=== PATIENT | female | born 2000 | race Caucasian/White ===

== ENCOUNTER 2025-05-20 21:45 | Inpatient (IN) ==
[2025-05-20] MEDS ORDERED: SODIUM CHLORIDE FLUSH 0.9% 10 ML SYRINGE IVP PRN (23:46)
[2025-05-20] MEDS ORDERED: OXYTOCIN/SODIUM CHLORIDE 500 ML IV PRN (23:46)
[2025-05-20] MEDS ORDERED: TRANEXAMIC ACID IN NACL 1,000 MG/100 ML BAG IV PRN (23:46)
[2025-05-20] MEDS ORDERED: TERBUTALINE 1 MG/ML VIAL SUBQ PRN (23:46)
[2025-05-20] MEDS ORDERED: LACTATED RINGERS 1,000 ML IV PRN (23:46)
[2025-05-20] MEDS ORDERED: CARBOPROST TROMETHAMINE 250 MCG/ML VIAL IM PRN (23:46)
[2025-05-20] MEDS ORDERED: hydrALAZINE INJ 20 MG/ML VIAL IVP PRN (23:46)
[2025-05-20] MEDS ORDERED: METHYLERGONOVINE 0.2 MG/ML VIAL IM PRN (23:46)
[2025-05-20] MEDS ORDERED: OXYTOCIN 10 UNIT/ML VIAL IM PRN (23:46)
[2025-05-20] MEDS ORDERED: fentaNYL 100 MCG/2 ML VIAL IVP PRN (23:46)
[2025-05-20] MEDS ORDERED: LABETALOL 20 MG/4 ML SYRINGE IVP PRN ×3 (23:46)
[2025-05-21 01:09] LABS: HCT - HEMATOCRIT 30.5 % (37.0-47.0); HGB - HEMOGLOBIN 9.8 g/dL (12.0-16.0); MEAN PLATELET VOLUME 10.0 fL (7.9-10.8); NRBC ABSOLUTE COUNT (AUTO) 0.00 x10^3/uL; NUCLEATED RED BLOOD CELLS AUTO 0.0 /100WBC; PLT - PLATELET COUNT 288 10^3/uL (130-450); RED CELL DISTRIBUTION WIDTH 12.6 % (12.0-15.0)
[2025-05-21] MEDS: LACTATED RINGERS 1,000 ML IV SCH (01:30)
[2025-05-21] MEDS: AMPICILLIN 2 GM in SODIUM CHLORIDE 0.9% MINIBAG 100 ML IV ONE (01:30)
[2025-05-21] MEDS: OXYTOCIN/SODIUM CHLORIDE 500 ML IV PRN (03:50)
[2025-05-21] MEDS ORDERED: AMPICILLIN 1 GM in SODIUM CHLORIDE 0.9% MINIBAG 100 ML IV SCH (04:00)
--- NOTE | 2025-05-21 04:06 | PROVIDER PROGRESS NOTE ---
HPI Chief Complaint: Labor Check Current : Current EDU 06/01/25 Gestation 38 Weeks and 2 Days Para 1 Vital Signs Temperature 36.8 C 05/20/25 23:51 Pulse Rate 88 05/20/25 23:51 Respiratory Rate 16 05/20/25 23:51 Blood Pressure 130/78 05/20/25 23:51 Procedures NST Procedure: NST Procedure Start Date 05/20/25 Start Time 21:52 Stop Time 22:26 Vibroacoustic Stimulation Used No Patient States Movement Yes Service Date of procedure: 05/20/25 Plan Plan: 24 yo @ 38+2 weeks gesation presented to L&D for labor triage. SVE essentially unchanged from clinic yesterday. FHT 130, moderate variability, + accelerations, - decelerations. Reactive NST. She had made some cervical changed by about 2 hours so she was admitted to L&D for labor.
--- NOTE | 2025-05-21 04:15 | DELIVERY NOTE ---
Delivery Note Delivery Comments (Free Text/Narrative) Delivery Comments (Free Text/Narrative): This 24 -year-old, G 2 P 1 @ 38+2 weeks gestation presented to L&D for labor check and was found to be at an advanced stage of cervical dilation on the night of 05/20/2025. Cervix was 5-6 after triage and she was becoming increasingly uncomfortable. GBS positive, treated with one dose of ampicillin. FHR pattern demonstrated 125-130 baseline in a category I prior to second stage. Normal labor course. Unmedicated delivery. Well supported by nursing team at the time of my arrival. AROM occurred at time of spontaneous pushing and complete dilation 05/21/2025 @ 0336. : Normal spontaneous vaginal delivery of a viable female on 05/21/2025 @ 0340 (KERVIN). No nuchal cord. The was placed on maternal abdomen, stimulated, dried and placed skin to skin. Apgars 9 & 9 @ 1 & 5 minutes. The umbilical cord was allowed to stop pulsating at which time it was doubly clamped by delivering provider and cut by FOB. 3VC. Cord blood was obtained. Fundal massage and gently cord traction applied for active management of the third stage, placenta delivered spontaneously and intact and appeared normal @ 0351. EBL 250cc. Placenta was not sent to pathology. Pitocin administered via IV for hemostasis and allowed to run freely. Uterine massage was performed until uterus was deemed firm. weight pending at this time. Inspection of the perineum noted to be intact. Upon re-inspection the patient wa s hemostatic. Uterus again massaged and found to be firm. Needle and sponge counts were correct. Uterine fundus firm and there is no excessive bleeding. Tissues well approximated. Skin to skin initiated. Family bonding well. Both mother and baby are in stable condition.
[2025-05-21] MEDS ORDERED: hydrALAZINE INJ 20 MG/ML VIAL IVP PRN ×2 (04:20)
[2025-05-21] MEDS ORDERED: ONDANSETRON 4 MG/2 ML VIAL IVP PRN (04:20)
[2025-05-21] MEDS ORDERED: LABETALOL 5 MG/1 ML 20 ML MDV IVP PRN (04:20)
[2025-05-21] MEDS ORDERED: SIMETHICONE CHEW 80 MG TABLET PO PRN (04:20)
[2025-05-21] MEDS ORDERED: HYDROCORTISONE 1% CREAM 28 GM TUBE TOP PRN (04:20)
[2025-05-21] MEDS ORDERED: NALOXONE 0.4 MG/ML VIAL IVP PRN (04:20)
[2025-05-21] MEDS ORDERED: WITCH HAZEL/GLYCERIN 1 PAD TOP PRN (04:20)
[2025-05-21] MEDS ORDERED: LABETALOL 20 MG/4 ML SYRINGE IVP PRN ×2 (04:20)
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
[2025-05-21] MEDS ORDERED: IBUPROFEN 800 MG TABLET ONE (04:46)
[2025-05-21] MEDS: IBUPROFEN 600 MG TABLET PO PRN (05:00)
[2025-05-21] MEDS ORDERED: FERROUS SULFATE 325 MG TABLET PO SCH (05:00)
[2025-05-21] MEDS ORDERED: IBUPROFEN 800 MG PO SCH (07:15)
[2025-05-21] MEDS: oxyCODONE 5 MG TABLET PO PRN ×2 (13:11→20:44)
[2025-05-21] MEDS: DOCUSATE SODIUM 100 MG CAPSULE PO SCH (13:28)
[2025-05-21] MEDS: FAMOTIDINE 20 MG TABLET PO SCH (13:29)
--- NOTE | 2025-05-21 14:03 | PHARMACY PROGRESS NOTE ---
Best Possible Medication History Admit Date and Time: 05/20/25 [id number] Home Medications Medication Instructions Recorded Confirmed Type famotidine 20 mg tablet 20 mg PO DAILY 02/09/2504/27 History Processed by: Pharmacy Medications reviewed in ED?: No Medication History completed: Yes Patient Interview: Completed [facility] Statement: As the person ultimately responsible for medication therapy, providers are able to order a medication from an existing home medication list in [facility] via the "Reconcile Routine" prior to Confirmation of that medication by business support manager. Such practice is discouraged except when the physician, in their clinical judgment, deems that a medical need exists for a medication without regard to previous use.
[2025-05-21] MEDS: ACETAMINOPHEN 500 MG TABLET PO PRN (20:43)
--- NOTE | 2025-05-22 09:41 | Discharge Summary ---
Discharge Summary HPI History of Present Illness: Date of Admission: 05/20/2025 Date of Discharge: 05/22/2025 Diagnosis on admission: 24yo @ 38+3weeks gestation by 13+3 wk U/S Active labor FHR 130 Cat I GBS POSITIVE Diagnosis on Discharge 24yo s/p 05/21/2025 @0336 intact perineum Unremarkable course Physical exam: Normocephalic, atraumatic No increased work of breathing Normal uterine involution, FF below umbilicus Small/ scant rubra bleeding minimal perineal discomfort. Bilateral LE's no edema Mood is good. Brief History: This 24 -year-old, G 2 P 1 @ 38+2 weeks gestation presented to L&D for labor check and was found to be at an advanced stage of cervical dilation on the night of 05/20/2025. Cervix was 5-6 after triage and she was becoming increasingly uncomfortable. GBS positive, treated with one dose of ampicillin. FHR pattern demonstrated 125-130 baseline in a category I prior to second stage. Normal labor course. Unmedicated delivery. . AROM occurred at time of spontaneous pushing and complete dilation 05/21/2025 @ 0336. : Normal spontaneous vaginal delivery of a viable female infant on 05/21/2025 @ 0340 (KERVIN). No nuchal cord. The was placed on maternal abdomen, stimulated, dried and placed skin to skin. Apgars 9 & 9 @ 1 & 5 minutes. The umbilical cord was allowed to stop pulsating at which time it was doubly clamped by delivering provider and cut by FOB. 3VC. Cord blood was obtained. Fundal massage and gently cord traction applied for active management of the third stage, placenta delivered spontaneously and intact and appeared normal @ 0351. EBL 250cc. Placenta was not sent to pathology. Pitocin administered via IV for hemostasis and allowed to run freely. Uterine massage was performed until uterus was deemed firm. weight 3279 g, 65 %. Intact perineum. She has been doing well in her course. She is ambulating and tolerating a regular diet. She is urinating without difficulty and her lochia is normal. Her pain is well controlled without narcotic management. Received two dose of 5mg oxycodone, last dose over 12 hours ago. Feels pain is much better and Tylenol and IBU are sufficient management. She will be discharged to home today on day #1 and encouraged IBU, Tylenol and stool softeners PRN. She intends to [facility] up [facility] 1 week for telehealth 05/26/2025. She has a 6 week visit scheduled for 06/29/2025 @ 1300. Currently she is not interested in any control but understands that the options are available to her. She has been given precautions to call if she has any new or worsening sx such as fevers, chills, abdominal pain, increasing bleeding, or foul smelling vaginal lochia. preeclamptic precautions reviewed as well. Blood Type: B+ VZV:immune Rubella: immune ALLERGIES Allergies Allergy/AdvReac Type Severity Reaction Status Date / Time No Known Drug Allergies Allergy Verified 05/20/25 09:37 MEDICATIONS Ambulatory Orders Medication Instructions Recorded Confirmed famotidine 20 mg tablet 20 mg PO DAILY 02/09/25 09/02/17 LABS 05/21/25 00:40 Discharge Plan Discharge Patient Disposition: Home, Self Care Medically Cleared Date:: 05/22/25 Prescriptions: Continued famotidine 20 mg tablet 20 mg PO DAILY Activity Restrictions: No Restrictions Diet: Regular Print Language: British Patient Instructions: After a Vaginal , Holds, Expressing Your Milk, : Caring for Yourself Follow-up Care: Mercy Mcdaniel ARNP [Primary Care Provider, Obstetrics/Gynecology]
[2025-05-22 10:46] VITALS: TEMP 98.4
[2025-05-22 15:17] VITALS: BP 110/62; O2SAT 99
--- NOTE | 2025-05-22 15:21 | Labor Flowsheet ---
Labor Flowsheet Datetime Report Generated by CPN: 05/22/2025 15:21 Datetime: 05/22/2025 10:29 VITAL SIGNS NBP Sys/Hilda/Mean (mmHg): 110 : 59 : 71 Pulse: 75 COMMUNICATION LaborFlag: OB Triage Datetime: 05/22/2025 01:20 SpO2 (%): 98 Datetime: 05/21/2025 04:04 Membranes Ruptured Date/Time: 05/21/2025 03:13 Datetime: 05/21/2025 03:38 STAGE 2 Pushing: Urge to Push Pushing Position: Pushing with Contractions Pushing Progress: with Pushing Datetime: 05/21/2025 03:31 ASSESSMENT A Monitor Mode: Telemetry FHR Baseline Rate : 130 FHR Baseline Changes: No Baseline Change Variability: Minimal - Undetectable to <=5 bpm Accelerations: 10X10 Decelerations: None Category: Category I Oxygen Method: Room Air Datetime: 05/21/2025 03:13 VAGINAL EXAM Dilatation (cm): 10.0 Effacement (%): 100 Station: 3 Exam by: Mercy sánchez Membrane Status: Ruptured Membranes Rupture Method: Artificial Amniotic Fluid Color: Clear Amniotic Fluid Amount: Small Amniotic Fluid Odor: Normal Vaginal Bleeding: Normal Show Cervix, Consistency: Soft Cervix, Position: Anterior Vaginal Exam Comments: start pushing Datetime: 05/21/2025 03:05 PAIN Pain Scale: 9 Pain Presence: Constant Pain Type: Pressure Pain Location: Perineum Pain Goal: 8 Pain Assessment Comments: mercy coming in for delivery Comfort Measures: Breathing/Relaxation; Family Support Datetime: 05/21/2025 02:31 Frequency (min): 5 Quality: Moderate Duration (sec): 60-90 Pattern: Normal: <= 5 Contractions in 10 Minutes Resting Tone (Palpate): Relaxed Datetime: 05/21/2025 02:10 I/O Interventions: Up to BR Datetime: 05/21/2025 01:04 UTERINE ACTIVITY Monitor Mode: External Pain Relief Measures: Comfort Measures Pain Coping: Breathing Through Contractions MATERNAL ASSESSMENT Level of Consciousness: Drowsy DTR's/Clonus: DTRs 2+ Headache: Denies Breath Sounds, Left: Clear and Equal Breath Sounds, Right: Clear and Equal Nausea/Vomiting: Denies RUQ Epigastric Pain: Denies PATIENT CARE IV/Blood Work: IV Started Patient Position/Activity: Semi-Fowlers Datetime: 05/21/2025 00:14 Respirations: 18 Temperature (C): 37.0 Datetime: 05/20/2025 23:45 Presentation 'A': Cephalic Datetime: 05/20/2025 22:30 TEACHING Instructional Method: Verbal; Patient Instructed; Family/Support Person Instructed; Verbalized Understanding Plan of Care: Plan of Care Discussed; Vaginal Delivery; Labor Unit Routine: [place] to Room; Call [place]; Visiting Policy; Unit Personnel; Monitoring; Safety/Fall Risk Prevention; Medications Pain Management: PRN Medications; Pain Scale/Goals; Comfort Measures Medications: Antibiotics Datetime: 05/20/2025 21:50 Stage of : OB Triage
== END 2025-05-22 15:17 | disposition home or self-care (01) | DRG 807 ==
LOC: WFO 21:45 → FBP 21:48
PROVIDERS: ADMIT Nurse Practitioner; ATTEND Nurse Practitioner